=== PATIENT | female | born 1980 | race African-American/Black ===

== ENCOUNTER 2025-08-01 09:06 | Emergency (ER) | payer OTHER ==
[2025-08-01 09:28] VITALS: BP 152/87; PULSE 73; RESP 16; TEMP 97.8; BMI 30.5
[2025-08-01] MEDS ORDERED: ACETAMINOPHEN 500 MG TABLET (FP) ONE (10:13)
[2025-08-01] MEDS: ACETAMINOPHEN 500 MG TABLET (FP) PO ONE (10:17)
[2025-08-01] MEDS ORDERED: IBUPROFEN 400 MG TABLET (FP) PO ONE (10:19)
[2025-08-01] MEDS ORDERED: MAG HYDROX/AL HYDROX/SIMETH 30 ML UNIT-DOSE CUP ONE (10:20)
[2025-08-01] MEDS ORDERED: LIDOCAINE 5% TOPICAL PATCH ONE (10:20)
[2025-08-01] MEDS: MAG HYDROX/AL HYDROX/SIMETH 30 ML UNIT-DOSE CUP PO ONE (10:21)
[2025-08-01] MEDS: IBUPROFEN 400 MG TABLET (FP) PO ONE (10:21)
[2025-08-01] MEDS: LIDOCAINE 5% TOPICAL PATCH TP ONE (10:21)
[2025-08-01 10:23] LABS: URINE APPEARANCE CLOUDY; URINE BILIRUBIN NEGATIVE (NEGATIVE); URINE COLOR YELLOW; URINE GLUCOSE (UA) NEGATIVE (NEGATIVE); URINE KETONE NEGATIVE (NEGATIVE); URINE LEUK ESTERASE NEGATIVE (NEGATIVE); URINE NITRITE NEGATIVE (NEGATIVE); URINE PROTEIN NEGATIVE (NEGATIVE); URINE UROBILINOGEN 1.0 mg/dL (0.2-1.0)
[2025-08-01] MEDS ORDERED: METHOCARBAMOL 500 MG TABLET ONE (10:23)
[2025-08-01] MEDS: METHOCARBAMOL 750 MG TABLET PO ONE (10:23)
[2025-08-01] MEDS ORDERED: LIDOCAINE PATCH REMOVAL MC SCH (22:00)
== END 2025-08-01 12:26 | disposition home or self-care (01) ==
LOC: JER 09:06
DX: M54.50 Low back pain, unspecified (principal); R68.83 Chills (without fever); R10.30 Lower abdominal pain, unspecified; R82.90 Unspecified abnormal findings in urine
CPT/HCPCS: 81003; 87086; 99283-25